=== PATIENT | male | born 1965 | race Caucasian/White ===

== ENCOUNTER 2016-09-24 17:21 | Inpatient (IN) | payer BC ==
[~2016-09-24] VITALS: Ht 180.3 cm; Wt 159.2 kg
[~2016-09-24 17:21] MED LIST: ACET325T9 PO; ALPR1TAB2 PO; AMLO1TAB15 PO; ASPI-630 PO; ATOR40TA59 PO; BYSTOLIC5 MG PO; LEVO50TA5 PO; PRAS10TA9 PO
[2016-09-24 19:55] VITALS: BP 150/77
[2016-09-24] MEDS ORDERED: MULT1TAB97 PO (20:20)
[2016-09-24] MEDS ORDERED: OMEG1CAP6 PO (20:26)
[2016-09-24] MEDS ORDERED: VALS320T2 PO (20:26)
[2016-09-24] MEDS ORDERED: HYDR-2762 PO (20:26)
[2016-09-24] MEDS ORDERED: ACETAMINOPHEN 325 MG TABLET. PO PRN (20:30)
[2016-09-24] MEDS ORDERED: MIRA25TA PO (20:33)
[2016-09-24] MEDS ORDERED: AMLO10TA2 PO (20:52)
[2016-09-24] MEDS ORDERED: GADOBUTROL 7.5 MMOL/7.5 ML VIAL IV ONE ×2 (22:00)
--- NOTE | 2016-09-24 22:30 | RAD ---
EXAM: Brain MRI without and with contrast. HISTORY: Slurred speech. TECHNIQUE: Multiplanar, multisequence magnetic resonance imaging of the brain was performed prior to and following the administration of 14 cc Gadavist intravenous contrast. COMPARISON: Head CT obtained on the same date. FINDINGS: There is no restricted diffusion to suggest acute or subacute infarction. There is a tiny focus of susceptibility artifact within the left thalamus, artifactual or due to chronic microhemorrhage. There are a few tiny scattered foci of T2/FLAIR hyperintensity within the cerebral white matter, a nonspecific finding. The orbits, paranasal sinuses and mastoid air cells are unremarkable. There are normal flow voids within the cerebral vessels. No suspicious enhancing lesion is seen. IMPRESSION: 1. No acute intracranial finding. 2. Tiny foci of signal changes within the cerebral white, likely artifactual or due to chronic small vessel disease or chronic migraine headaches. Electronically signed by: Frida Richardson MD (09/24/2016 10:26 PM)
[2016-09-24] MEDS: METOPROLOL TART IMMED RELEASE 50 MG TABLET. PO SCH (23:02)
[2016-09-24] MEDS: HYDROcodone/APAP 7.5/325MG 1 TAB TABLET PO PRN (23:02)
[2016-09-25 03:23] VITALS: BP 119/65
[2016-09-25 03:55] LABS: BASO # 0.1 x10^3/uL (0.0-0.2); BASO % 1 % (0-3); EOS % 4 % (0-3); HEMOGLOBIN 13.8 g/dL (13.0-17.5); LYMPH # 2.4 x10^3/uL (1.0-4.8); LYMPH % 37 % (24-48); MEAN CORPUSCULAR HEMOGLOBIN 29 pg (25-35); MEAN CORPUSCULAR HGB CONC 36 g/dL (31-37); MEAN CORPUSCULAR VOLUME 83 fL (79-100); MONO % 7 % (0-9); NEUT % 51 % (31-73); PLATELET COUNT 220 x10^3/uL (140-400); RED BLOOD COUNT 4.72 x10^6/uL (4.30-5.70); RED CELL DISTRIBUTION WIDTH 13.2 % (11.5-14.5); WHITE BLOOD COUNT 6.3 x10^3/uL (4.0-11.0)
[2016-09-25 05:18] LABS: CHOLESTEROL/HDL RATIO 6.1
[2016-09-25 06:55] VITALS: BP 129/63
[2016-09-25] MEDS: LEVOTHYROXINE 50 MCG TABLET PO SCH (07:58)
[2016-09-25] MEDS: OMEGA-3 FATTY ACIDS/FISH OIL 1,000 MG CAPSULE. PO SCH (07:58)
[2016-09-25] MEDS: amLODIPine BESYLATE 10 MG TABLET PO SCH (07:59)
[2016-09-25] MEDS: LOSARTAN POTASSIUM 50 MG TABLET. PO SCH (08:00)
[2016-09-25] MEDS: MULTIVITAMIN with MINERAL TABLET. PO SCH (08:01)
[2016-09-25] MEDS: METOPROLOL TART IMMED RELEASE 50 MG TABLET. PO SCH ×2 (08:01→20:49)
--- NOTE | 2016-09-25 08:18 | RAD ---
Carotid ultrasound, 09/25/2016: History: Slurred speech, fall, headache Duplex evaluation of the carotid arteries in neck was performed including grayscale, color-flow and spectral Doppler analysis. There is mild intimal thickening and smooth plaquing at both bifurcations. The Doppler data obtained from the bifurcations reveals no significant focal velocity acceleration to suggest a hemodynamically significant carotid stenosis. The peak systolic velocity in the right internal carotid artery is 75 cm/s with an end-diastolic velocity of 26 cm/s. The peak systolic velocity in the left internal carotid artery is 54 cm/s with an end-diastolic velocity of 19 cm/s. Antegrade flow is present in the left vertebral artery in the neck. The right vertebral artery could not be visualized. IMPRESSION: 1. Minimal smooth plaquing at the carotid bifurcations without duplex evidence of significant stenosis. 2. 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 Note: Stenosis calculations for CT, MRA and conventional angiography are based upon determination of the distal ICA diameter in accordance with the NASCET methodology. Stenosis calculations for Doppler studies are derived from validated velocity criteria which are known to correlate with NASCET methodology of determining stenosis.
[2016-09-25] MEDS ORDERED: MIRABEGRON 25 MG TAB.ER.24H PO SCH (09:00)
[2016-09-25] MEDS ORDERED: ASPIRIN CHEWABLE 81 MG TABLET. PO SCH (09:00)
[2016-09-25] MEDS ORDERED: amLODIPine BESYLATE 10 MG TABLET PO SCH (09:00)
[2016-09-25] MEDS: HYDROcodone/APAP 7.5/325MG 1 TAB TABLET PO PRN ×2 (10:07→17:08)
--- NOTE | 2016-09-25 10:43 | CARD ---
APPROVED REPORT EXAM: Two-dimensional and M-mode echocardiogram with Doppler and color Doppler. Other Information Quality : GoodHR: 66bpm Rhythm : NSR INDICATION Chest Pain Slurred speech hx. Echo Enhancing Agent Indication: Rule Out Septal Defect Agent/Amount Used: Agitated Saline 8mL RISK FACTORS Hypertension Obesity 2D DIMENSIONS RVDd3.3 (2.9-3.5cm)Left Atrium(2D)4.5 (1.6-4.0cm) IVSd0.9 (0.7-1.1cm)Aortic Root(2D)3.2 (2.0-3.7cm) LVDd4.4 (3.9-5.9cm)LVOT Diameter2.5 (1.8-2.4cm) PWd0.8 (0.7-1.1cm)LVDs3.2 (2.5-4.0cm) FS (%) 29.2 %SV50.6 ml LVEF(%)56.2 (>50%) Aortic Valve AoV Peak [place].140.0cm/sAoV VTI31.4cm AO Peak GR.7.8mmHgLVOT Peak [place].96.5cm/s AO Mean GR.5mmHgAVA (VMAX)3.30cm2 Mitral Valve MV E Inejnokn60.0cm/sMV E Peak Gr.6mmHg MV DECEL [id number] A Hkaqwduw43.8cm/s MV E Mean Gr.2mmHgE/A Ratio1.2 MV A Xfcwvxwa40ox Pulmonary Valve PV Peak Zkrrzebb918.3cm/s Tricuspid Valve TR P. Oeraqycx210be/sTR Peak Gr.27mmHg Pulmonary Vein S1 Yvjgfpjk06.0cm/sD2 Oiinlwjw35.8cm/s PVa [id number] LEFT VENTRICLE The left ventricle is normal size. There is normal left ventricular wall thickness. The left ventricu lar systolic function is normal. The Ejection Fraction is 60-65%. There is normal LV segmental wall m otion. Transmitral Doppler flow pattern is Grade I-abnormal relaxation pattern. No left ventricle thr ombus noted on this study. There is no ventricular septal defect visualized. RIGHT VENTRICLE The right ventricle is normal size. There is normal right ventricular wall thickness. The right ventr icular systolic function is normal. ATRIA The left atrium is mildly dilated. The right atrium size is normal. The interatrial septum is intact with no evidence for an atrial septal defect or patent foramen ovale as noted on 2-D or Doppler imagi ng. Injection of bubbles documented no interatrial shunt. AORTIC VALVE The aortic valve is mildly thickened. The aortic valve is trileaflet. Doppler and Color Flow revealed no significant aortic regurgitation. There is no significant aortic valvular stenosis. MITRAL VALVE The mitral valve leaflets are mildly thickened. There is no evidence of mitral valve prolapse. There is no mitral valve stenosis. Doppler and Color Flow revealed mild mitral regurgitation. TRICUSPID VALVE Doppler and Color Flow revealed trace tricuspid regurgitation. The pulmonary artery systolic pressure is estimated at 29 mmHg. There is no pulmonary hypertension. PULMONIC VALVE Doppler and Color Flow revealed mild pulmonic valvular regurgitation. There is no pulmonic valvular s tenosis. GREAT VESSELS The aortic root is normal in size. The ascending aorta is normal in size. The pulmonary artery is nor mal. The IVC was obscured, unable to assess. PERICARDIAL EFFUSION There is no evidence of significant pericardial effusion. Critical Notification Critical Value: No <Conclusion> The left ventricular systolic function is normal. The Ejection Fraction is 60-65%. There is normal LV segmental wall motion. Transmitral Doppler flow pattern is Grade I-abnormal relaxation pattern. Mild mitral regurgitation. Trace tricuspid regurgitation. The pulmonary artery systolic pressure is estimated at 29 mmHg. There is no evidence of significant pericardial effusion. Injection of bubbles documented no interatrial shunt.
[2016-09-25 10:47] VITALS: BP 138/65
--- NOTE | 2016-09-25 11:48 | HP ---
ADMIT DATE: 09/24/2016 CHIEF COMPLAINT: Mental status change and weakness. HISTORY OF PRESENT ILLNESS: The patient is a pleasant middle-aged 51-year-old male presented with mental status change and weakness. He appeared he may have a TIA. He was transferred here; we have now admitted the patient and did an echo this morning, it looks pretty good ____ in the official report, we were also consulted Neurology. He had an MRI; the results are pending. PAST MEDICAL HISTORY: Hypertension, chronic pain, and hypothyroidism. ALLERGIES: None. FAMILY HISTORY: Diabetes. SOCIAL HISTORY: Does not drink, smoke or take drugs. MEDICATIONS: Reviewed, please refer to the MRAD. REVIEW OF SYSTEMS: GENERAL: No history of weight change, weakness or fevers. SKIN: No bruising, hair changes or rashes. EYES: No blurred, double or loss of vision. NOSE AND THROAT: No history of nosebleeds, hoarseness or sore throat. HEART: No history of palpitations, chest pain or shortness of breath on exertion. LUNGS: Denies cough, hemoptysis, wheezing or shortness of breath. GASTROINTESTINAL: Denies changes in appetite, nausea, vomiting, diarrhea or constipation. GENITOURINARY: No history of frequency, urgency, hesitancy or nocturia. NEUROLOGIC: He complains of weakness and slow cognition. PSYCHIATRIC: No history of panic, anxiety or depression. ENDOCRINE: No history of heat or cold intolerance, polyuria or polydipsia. EXTREMITIES: Denies muscle weakness, joint pain, pain on walking or stiffness. PHYSICAL EXAMINATION: VITAL SIGNS: Temperature afebrile, pulse 96, respirations 20, blood pressure 130/56. GENERAL: He is alert, but he is weak. His daughter is present. HEART: Normal S1, S2. LUNGS: Clear. ABDOMEN: Soft and obese. EXTREMITIES: 1+ edema. SKIN: No rashes. PSYCHIATRIC: He is little flat but stable. ENDOCRINE: No thyromegaly. LYMPHATICS: No cervical nodes. HEMATOPOIETIC: No bruising. LABORATORY DATA: White count 6, hemoglobin 13, and platelets 220. Electrolytes are pending. Triglycerides were high at 399. Cholesterol 219. LDL 103. ASSESSMENT AND PLAN: TIA symptoms. The patient is being admitted. We will consult Neurology. We will await MRI report and hold one of his home medications and particularly Myrbetriq as he just started this for some type of bladder dysfunction and his states she wanders if that might be causing the mental status changes. The mental status change came on shortly after that; PT, OT and speech therapy. Continue his other home medicines. Repeat his labs. KATIE TAMAYO DO DR: SONJA/gerardo JOB#: [id number] / [id number]
[2016-09-25 14:56] VITALS: BP 130/71
--- NOTE | 2016-09-25 17:06 | PDOC2 ---
NEUROLOGY CONSULT Date of Admission Date of Admission DATE: 09/25/16 TIME: 16:51 Reason for Consult Reason for Consult: IMPRESSION: TIA HTn HLD Right vertebral A hypoplastic or occlusion. Right cheek mass, per Hx. Obesity. No evidence of acute CVA this time. RECOMMENDATIONS/PLAN: ASA 325 mg daily. Lipitor 40 mg HS. Weight reduction. Diet. Exercise. Discussed with his daughter at bedside. FU with PCP. FU with Neurology in 1 month. Carotid A US + Doppler on 09/25/16: No gihg grade stenosis. Echo on 09/25/16: unremarkable. Lipids on 09/25/16: high. MRI on 09/24/16 : No acute CVA. HISTORY OF THE PRESENT ILLNESS: 51-y-old male patient with Hx of HTN developed symptoms of slurred speech, word finding difficulties and confusion on 09/24. No motor or sensory deficits. His symptoms lasted for several hours then resolved. PAST MEDICAL HISTORY: Please see above. PAST SURGERY HISTORY: No major surgery recently. ALLERGY: Reviewed. MEDICATIONS: Refer to [facility] FAMILY HISTORY: DM. SOCIAL HISTORY: Lives at home. Denies current smoking, drinking, and illicit drug use. REVIEW OF SYSTEMS: Constitutional: No malnutrition, weight loss, cachexia. Head: No traumatic brain or head injury. Skin: No edema, or rash. Ear: No infection. Eyes: No vision loss or color blindness. Nose: No bleeding or purulent discharges. Hearing: No hearing decrease. Neck: No injury. Cardiac: HTN. Pulmonary: No COPD. GI: No GI ulcer, GI bleeding. Urinary/genital: No dysuria, incontinence, urinary retention. Endocrinologic: Diabetes Mellitus. Skeletomuscular: No muscular atrophy, deformity. Neurological: see HP. Psychiatric: Denies drug use/abuse. Otherwise, not [id number] review of systems. PHYSICAL EXAMINATION: General appearance is in subacute distress. HEENT: Normocephalic and nontraumatic. Eyes, nose, ears, and throat are unremarkable. Neck is supple. No lymphadenopathy. No bruits are heard over the carotid artery. No crepitus. Cardiovascular: S1, S2, regular rate and rhythm. Pulmonary: Clear to auscultation bilaterally. Abdomen: Bowel sounds are positive. Abdomen is soft, nontender, and nondistended. Extremities: No rash, lesions, or edema. No restriction of range of motion NEUROLOGICAL EXAMINATION: Alert Oriented to time, place and person. PERRL. EOMI. CN: no focal findings. Muscle tone: within normal. Muscle strength: 5 DTR: 2 Plantar reflex: Flexor response bilaterally Gait: not examined in bed. Sensory exam: no abnormal findings. No cerebellar signs elicited. F-T-N test accurate. Current Medications Current Medications Current Medications Acetaminophen (Tylenol) 325 mg PRN TID PRN PO MILD PAIN / TEMP; Start 09/24/16 at 20:30 Acetaminophen/ Hydrocodone Bitart (Lortab 7.5/325) 1 tab PRN Q6HRS PRN PO PAIN Last administered on 09/25/16 10:07; Start 09/24/16 at 20:30 Levothyroxine Sodium (Synthroid) 50 mcg DAILY07 PO Last administered on 07:58; Start 09/25/16 at 09:00 Fish Oil (Fish Oil) 1,000 mg DAILY PO Last administered on 09/25/16 07:58; Start 09/25/16 at 09:00 Multivitamins (Thera M Plus) 1 tab DAILY PO Last administered on 09/25/16 08: 01; Start 09/25/16 at 09:00 Losartan Potassium (Cozaar) 100 mg DAILY PO Last administered on 09/25/16 08: 00; Start 09/25/16 at 09:00 Amlodipine Besylate (Norvasc) 10 mg DAILY PO Last administered on 09/25/16 07: 59; Start 09/25/16 at 09:00 Mirabegron (Myrbetriq) 25 mg DAILY PO Last administered on 09/25/16 08:04; Start 09/25/16 at 09:00; Stop 09/25/16 at 12:27; Status DC Metoprolol Tartrate (Lopressor) 50 mg BID PO Last administered on 09/25/16 08: 01; Start 09/24/16 at 21:00 Amlodipine Besylate (Norvasc) 10 mg DAILY PO ; Start 09/25/16 at 09:00; Stop at 09:00; Status DC Aspirin (Children'S Aspirin) 81 mg DAILY PO Last administered on 09/25/16 08: 01; Start 09/25/16 at 09:00; Stop 09/25/16 at 16:51; Status DC Gadobutrol (Gadavist) 7 mmol 1X ONCE IV Last administered on 09/24/16t 22:07; Start 09/24/16 at 22:00; Stop 09/24/16 at 22:01; Status DC Gadobutrol (Gadavist) 7 mmol 1X ONCE IV Last administered on 09/24/16t 22:08; Start 09/24/16 at 22:00; Stop 09/24/16 at 22:01; Status DC Aspirin (Children'S Aspirin) 325 mg DAILY PO ; Start 09/26/16 at 09:00; Status UNV Atorvastatin Calcium (Lipitor) 40 mg QHS PO ; Start 09/25/16 at 21:00; Status UNV Active Scripts Active Reported Amlodipine Besylate 10 Mg Tablet 10 Mg PO DAILY Myrbetriq (Mirabegron) 25 Mg Tab.er.24h 25 Mg PO DAILY Fish Oil 1,000 Mg Capsule ([place]-3 Fatty Acids/Fish Oil) 1 Each Capsule 1 Each PO DAILY Diovan (Valsartan) 320 Mg Tablet 320 Mg PO DAILY Hydrocodone-Apap 7.5-325 (Hydrocodone Bit/Acetaminophen) 1 Each Tablet 1 Tab PO PRN Q6HRS PRN Daily Multiple Vitamin (Multivitamin) 1 Each Tablet 1 Each PO DAILYWBKFT Tylenol (Acetaminophen) 325 Mg Tablet 325 Mg PO PRN TID Bystolic (Nebivolol) 5 Mg Tablet 10 Mg PO HS Levothyroxine Sodium 50 Mcg Tablet 50 Mcg PO DAILY Aspirin 81 Mg Tab.chew 81 Mg PO DAILY Allergies Allergies: Coded Allergies: No Known Drug Allergies (Unverified , 06/08/13) Vitals VITALS Vital Signs Date Time Temp Pulse Resp B/P (MAP) Pulse Ox O2 Delivery O2 Flow Rate FiO2 09/25/16 14:56 97.7 67 20 130/71 (90) 96 Room Air 97.7 Labs Labs Laboratory Tests Test 09/25/16 02:55 White Blood Count 6.3 x10^3/uL (4.0-11.0) Red Blood Count 4.72 x10^6/uL (4.30-5.70) Hemoglobin 13.8 g/dL (13.0-17.5) Hematocrit 39.0 % (39.0-53.0) Mean Corpuscular Volume 83 fL (79-100) Mean Corpuscular Hemoglobin 29 pg (25-35) Mean Corpuscular Hemoglobin Concent 36 g/dL (31-37) Red Cell Distribution Width 13.2 % (11.5-14.5) Platelet Count 220 x10^3/uL (140-400) Neutrophils (%) (Auto) 51 % (31-73) Lymphocytes (%) (Auto) 37 % (24-48) Monocytes (%) (Auto) 7 % (0-9) Eosinophils (%) (Auto) 4 % (0-3) Basophils (%) (Auto) 1 % (0-3) Neutrophils # (Auto) 3.2 x10^3uL (1.8-7.7) Lymphocytes # (Auto) 2.4 x10^3/uL (1.0-4.8) Monocytes # (Auto) 0.4 x10^3/uL (0.0-1.1) Eosinophils # (Auto) 0.3 x10^3/uL (0.0-0.7) Basophils # (Auto) 0.1 x10^3/uL (0.0-0.2) RP-Mog-J-Type Natriuretic Peptide 16 pg/mL (0-124) Triglycerides Level 399 mg/dL (0-150) Cholesterol Level 219 mg/dL (0-200) LDL Cholesterol, Calculated 103 mg/dL (0-100) VLDL Cholesterol, Calculated 80 mg/dL (0-40) Non-HDL Cholesterol Calculated 183 mg/dL (0-129) HDL Cholesterol 36 mg/dL (40-60) Cholesterol/HDL Ratio 6.1 Laboratory Tests Test 09/25/16 02:55 White Blood Count 6.3 x10^3/uL (4.0-11.0) Red Blood Count 4.72 x10^6/uL (4.30-5.70) Hemoglobin 13.8 g/dL (13.0-17.5) Hematocrit 39.0 % (39.0-53.0) Mean Corpuscular Volume 83 fL (79-100) Mean Corpuscular Hemoglobin 29 pg (25-35) Mean Corpuscular Hemoglobin Concent 36 g/dL (31-37) Red Cell Distribution Width 13.2 % (11.5-14.5) Platelet Count 220 x10^3/uL (140-400) Neutrophils (%) (Auto) 51 % (31-73) Lymphocytes (%) (Auto) 37 % (24-48) Monocytes (%) (Auto) 7 % (0-9) Eosinophils (%) (Auto) 4 % (0-3) Basophils (%) (Auto) 1 % (0-3) Neutrophils # (Auto) 3.2 x10^3uL (1.8-7.7) Lymphocytes # (Auto) 2.4 x10^3/uL (1.0-4.8) Monocytes # (Auto) 0.4 x10^3/uL (0.0-1.1) Eosinophils # (Auto) 0.3 x10^3/uL (0.0-0.7) Basophils # (Auto) 0.1 x10^3/uL (0.0-0.2) JZ-Qbq-U-Type Natriuretic Peptide 16 pg/mL (0-124) Triglycerides Level 399 mg/dL (0-150) Cholesterol Level 219 mg/dL (0-200) LDL Cholesterol, Calculated 103 mg/dL (0-100) VLDL Cholesterol, Calculated 80 mg/dL (0-40) Non-HDL Cholesterol Calculated 183 mg/dL (0-129) HDL Cholesterol 36 mg/dL (40-60) Cholesterol/HDL Ratio 6.1 VALENTE NEGRETE MD Sep 25, 2016 17:06
[2016-09-25 19:05] VITALS: BP 133/74
[2016-09-25] MEDS ORDERED: ATORVASTATIN CALCIUM 40 MG TABLET. PO SCH (21:00)
[2016-09-25 23:05] VITALS: BP 126/69
--- NOTE | 2016-09-25 23:30 | ACF ---
Admission Forms Criteria TELEMETRY CARE Telemetry Admission Guidelines (Place 'X' for any and all applicable criteria): Admission to telemetry [A] may be indicated for ANY ONE of the following(1)(2)(3 )(4)(5): [ ]I. Cardiac disease, including ANY ONE of the following (9)(10)(11)(12)(13 ): [ ]a) Postacute NM [ ]b) Low-risk patients with ST-segment elevation NM who have undergone successful percutaneous coronary intervention [ ]c) Unstable angina [ ]d) Suspected NM (until it is ruled out) [ ]e) Post cardiac surgery (first 48 to 72 hours unless complications occur) [ ]f) Acute arrhythmias (including significant tachycardia or bradycardia) [B] [ ]g) Firing of an implantable cardioverter defibrillator [C] [ ]h) Suspected pacemaker or implantable cardioverter defibrillator malfunction (10) [ ]i) New administration or adjustment of an antiarrhythmic drug [D ] [ ]j) Child admitted for acute congestive heart failure [ ]j) Long QT syndrome [ ]k) Advanced heart block (eg, second-degree Mobitz type II, third- degree heart block) [ ]l) Acute myocarditis or pericarditis [ ]m) Short-term (ambulatory or inpatient) monitoring after a cardiac procedure as indicated by ANY ONE of the following [E]: [ ]i) Electrophysiologic studies [ ]ii) Percutaneous coronary intervention with stent placement [ ]iii) Pacemaker placement with cardiac conduction defect [ ]iv) Implantable cardiac defibrillator placement [ ]II. Drug overdose or poisoning with substance that causes arrhythmias or QT prolongation (eg, phenothiazines, sympathomimetic agents, cyclic antidepressants, digitalis, antiarrhythmic drugs)(15) [ ]III. Short-term (ambulatory or inpatient) monitoring after therapeutic or diagnostic procedure requiring conscious sedation or anesthesia (eg, endoscopy, elective cardioversion) [X]IV. Acute cerebrovascular even[F](18) [ ]V. Massive blood transfusion (eg, at least 10 units of packed red blood cells in 24 hours) [ ]. Variceal bleeding after endoscopy, sclerotherapy, or IV vasopressin [ ]VII. Uncorrected electrolyte abnormalities associated with an increased risk of dangerous arrhythmia [G]; examples include [ ]a) Hyperkalemia with attributable ECG changes [ ]b) Potassium greater than 6.5 mmol/L (mEq/L) in a patient without history of chronic renal disease [ ]c) Prolonged QT attributed to hypokalemia, hypomagnesemia, or hypocalcemia [ ]VIII.Unexplained syncope or other neurologic event suspected of being due to arrhythmia due to a finding that increases risk; examples include(19)(20)(21): [ ]a) High-risk ECG findings (eg, bifascicular block, bradycardia, abnormal QT interval, ventricular pre- excitation) [ ]b) History of previous syncope due to arrhythmia [ ]c) Abnormal ventricular function (eg, reduced ejection fraction ) [ ]d) Exertional or supine syncope [ ]e) Concerning syncope characteristics (eg, sudden loss of consciousness without prodrome) [ ]f) Family history of sudden [ ]g) Use of arrhythmogenic medication [ ]h) Suspected cardiac ischemia [ ]i) Known channelopathy (eg, long QT syndrome, Brugada syndrome, or catecholaminergic paroxysmal ventricular tachycardia) [ ]j) Known structural heart disease (eg, hypertrophic cardiomyopathy , severe valvular disease) [ ]k) Palpitations preceding syncope The original [employer] content created by [employer] has been revised. The portions of the content which have been revised are identified through the use of italic text or in bold, and [facility] has neither reviewed nor approved the modified material. All other unmodified content is copyright [employer]. Please see references footnoted in the original [employer] edition 2016 Admission Criteria Met?: Yes MONO BAIRES Sep 25, 2016 23:30
[2016-09-26] MEDS: HYDROcodone/APAP 7.5/325MG 1 TAB TABLET PO PRN (02:55)
[2016-09-26 03:05] VITALS: BP 144/76
[2016-09-26] MEDS: LEVOTHYROXINE 50 MCG TABLET PO SCH (06:03)
[2016-09-26 07:41] VITALS: BP 138/80
[2016-09-26] MEDS: MULTIVITAMIN with MINERAL TABLET. PO SCH (07:49)
[2016-09-26] MEDS: LOSARTAN POTASSIUM 50 MG TABLET. PO SCH (07:49)
[2016-09-26] MEDS: METOPROLOL TART IMMED RELEASE 50 MG TABLET. PO SCH (07:50)
[2016-09-26] MEDS: OMEGA-3 FATTY ACIDS/FISH OIL 1,000 MG CAPSULE. PO SCH (07:50)
[2016-09-26 07:51] VITALS: BP 138/80
[2016-09-26] MEDS: amLODIPine BESYLATE 10 MG TABLET PO SCH (07:51)
[2016-09-26] MEDS ORDERED: ASPIRIN ENTERIC COATED 325 MG TABLET.DR. PO SCH (08:00)
[2016-09-26] MEDS ORDERED: ASPI325T8 PO (09:38)
[2016-09-26] MEDS ORDERED: ATOR40TA PO (09:39)
--- NOTE | 2016-09-26 17:09 | DS ---
DATE OF DISCHARGE: 09/26/2016 ADMISSION DIAGNOSIS: Transient ischemic attack versus possible drug reaction. DISCHARGE DIAGNOSIS: Resolving transient ischemic attack versus drug reaction. CONSULTS: Dr. Sanderson. PROCEDURES: None. HOSPITAL COURSE: The patient is a pleasant middle-aged white male who presented with mental status change, slurred speech, and some weakness. It appeared that he might have a TIA. Interestingly, he had been started on a new medication for his bladder issues (Myrbetriq). We went ahead and did an MRI. It was basically normal. We put him on more aspirin. We did some physical therapy and occupational therapy and held that suspicious medication. Over the past couple of days, he seems to be returning to his baseline. We are not sure it was the medication or the TIA, but he is doing well. I did examine the patient this morning. He is alert and oriented. He is moving all extremities. His heart sounds were normal. We plan to discharge. DISPOSITION: Home. ACTIVITY: As tolerated. DIET: Low sodium. MEDICATIONS: Please see the MRAD. TOTAL TIME: 32 minutes. KATIE TAMAYO DO DR: SONJA/gerardo JOB#: [id number] / [id number]
== END 2016-09-26 09:50 | disposition home or self-care (01) | DRG 69 ==
LOC: 6 SOUTH 19:37
PROVIDERS: ADMIT Internal Medicine; ATTEND Internal Medicine
DX: G45.9 Transient cerebral ischemic attack, unspecified (principal); Z68.42 Body mass index [BMI] 45.0-49.9, adult; E03.9 Hypothyroidism, unspecified; E66.9 Obesity, unspecified; G89.29 Other chronic pain; E78.5 Hyperlipidemia, unspecified; I10 Essential (primary) hypertension; Z83.3 Family history of diabetes mellitus; Q76.49 Other congenital malformations of spine, not associated with scoliosis; T50.905A Adverse effect of unspecified drugs, medicaments and biological substances, initial encounter; Y92.89 Other specified places as the place of occurrence of the external cause
CPT/HCPCS: 36415; 70553; 80061; 83880; 85027; 93880; C8929; A9585

== ENCOUNTER → 2017-12-25 | Outpatient (CLI) | payer BC ==
[~2017-12-25] MED LIST changes: +AMLO10TA6 PO; +ASPI325T8 PO; +ATOR40TA PO; +HYDR-2762 PO; +MIRA25TA PO; +MULT1TAB97 PO; +OMEG1CAP6 PO; +VALS320T2 PO
--- NOTE | 2017-12-25 11:40 | RAD ---
EXAM: MRI RIGHT KNEE DATE: 12/25/2017 8:15 AM CLINICAL INDICATION: WORSENING RIGHT MEDIAL KNEE PAIN OVER LAST MONTH, NO SX HX, NO PRIORS COMPARISON: None. TECHNIQUE: Multiplanar multisequence MR imaging of the right knee was performed without IV contrast. FINDINGS: No significant knee joint effusion. Complex multiloculated large Cohen's cyst is seen with diffuse edema tracking inferiorly along the medial knee likely from recent partial rupture. The ACL and PCL are intact. Mildly increased signal about the MCL possibly reactive from adjacent meniscal tear described below or from low-grade sprain. The fibular collateral ligament, biceps femoris, IT band and popliteus tendon are intact, normal in signal and morphology. Extensor mechanism is intact. Neutral patellar tracking. Medial meniscus: There is an oblique tear with radial component involving the posterior horn and body of the medial meniscus. Lateral meniscus: There is longitudinal increased signal within the anterior horn of the lateral meniscus consistent with longitudinal tear. Full-thickness cartilage defect is seen at the posterior weightbearing surface of the medial femoral condyle. Chondral thinning is seen at the medial patellar facet. IMPRESSION: 1. Multiloculated Cohen's cyst is seen with edema tracking inferiorly along the medial leg likely from recent partial rupture. 2. Complex tear of the medial meniscus with oblique and radial components involving the posterior horn and body. 3. Longitudinal tear of the anterior horn of the lateral meniscus. 4. Medial and patellofemoral compartment chondromalacia. Electronically signed by: Hieu Mcmanus MD (12/25/2017 11:36 AM) [id number]
== END | disposition home or self-care (01) ==
LOC: MRI 07:54
PROVIDERS: ATTEND Physician Assistant Medical
DX: S83.241A Other tear of medial meniscus, current injury, right knee, initial encounter (principal); S83.281A Other tear of lateral meniscus, current injury, right knee, initial encounter; M71.21 Synovial cyst of popliteal space [Baker], right knee; M22.41 Chondromalacia patellae, right knee; I10 Essential (primary) hypertension; E78.5 Hyperlipidemia, unspecified; E03.9 Hypothyroidism, unspecified; Z83.3 Family history of diabetes mellitus; X58.XXXA Exposure to other specified factors, initial encounter; Y93.89 Activity, other specified; Y92.89 Other specified places as the place of occurrence of the external cause; Y99.8 Other external cause status
CPT/HCPCS: 73721

== ENCOUNTER 2018-07-06 06:36 | Day surgery (SDC) | payer BC ==
[~2018-07-06] VITALS: Ht 180.3 cm; Wt 158.8 kg
[~2018-07-06 06:36] MED LIST changes: -AMLO10TA6 PO; +AMLO10TA8 PO; -HYDR-2762 PO; +HYDR-2765 PO; +VENL75CA PO; +ceFAZolin SODIUM 3 GM in IV DEXTROSE 5% 100ML 100 ML IV PRN
[2018-07-06] MEDS ORDERED: LIDOCAINE 1% PF 2 ML VIAL. ID PRN (07:00)
[2018-07-06] MEDS ORDERED: IV RINGERS,LACTATED 1000ML 1,000 ML IV SCH (07:00)
[2018-07-06] MEDS ORDERED: HYDROmorphone 2 MG/ML VIAL IV PRN (07:00)
[2018-07-06] MEDS ORDERED: MORPHINE SULFATE 2 MG/ML VIAL. IV PRN (07:00)
[2018-07-06] MEDS ORDERED: fentaNYL PF VIAL 100 MCG/2 ML VIAL IV PRN (07:00)
[2018-07-06] MEDS ORDERED: ONDANSETRON PF 4 MG/2 ML VIAL. IV PRN (07:00)
[2018-07-06] MEDS ORDERED: PROCHLORPERAZINE 10 MG/2 ML VIAL. IV PRN (07:00)
[2018-07-06] MEDS ORDERED: EPINEPHrine VIAL 30 MG/30 ML VIAL ONE (07:15)
[2018-07-06] MEDS ORDERED: BUPIVACAINE 0.25% 50 ML VIAL. ONE (07:15)
[2018-07-06] MEDS ORDERED: PROPOFOL 20 ML IV ONE (08:36)
[2018-07-06] MEDS ORDERED: LIDOCAINE 2% PF 5 ML VIAL. ONE (08:36)
[2018-07-06] MEDS ORDERED: ONDANSETRON PF 4 MG/2 ML VIAL. ONE (08:36)
[2018-07-06] MEDS ORDERED: DEXAMETHASONE SOD PHOS 20 MG/5 ML VIAL. ONE (08:36)
[2018-07-06] MEDS ORDERED: MIDAZOLAM HCL/PF 2 MG/2 ML VIAL. ONE (08:36)
[2018-07-06] MEDS ORDERED: fentaNYL PF VIAL 100 MCG/2 ML VIAL ONE ×3 (08:37→11:55)
[2018-07-06] MEDS ORDERED: BUPIVACAINE-EPI 0.25%-1:200000 MPF 30 ML VIAL. ONE ×2 (09:13→10:37)
--- NOTE | 2018-07-06 09:51 | PDOC1 ---
History and Physical Date of Admission Date of Admission DATE: 07/06/18 TIME: 09:45 Identification/Chief Complaint Chief Complaint right knee pain Source Source: Chart review, Patient History of Present Illness History of Present Illness 52-year-old man with right knee pain since December 2017. Stepped off a stair at his house in december 2017. Pain getting progressivly worse. MRI at [facility]. He walks 4 miles a day but has severe pain with walking now. The knee problems and swells after walking area some twinges of pain, popping and mechanical symptoms. He tried tramadol and ibuprofen. He has hypertension and sleep apnea for which he uses CPAP. He had a cardiac stent in 2012 and takes an aspirin daily. He works in IT. Past Medical History Cardiovascular: CAD, HTN, Hyperlipidemia Endocrine: Hypothyroidism Past Surgical History Past Surgical History: Appendectomy Family History Family History: Cancer, Coronary Artery Disease Social History ALCOHOL: rare Drugs: None Current Medications Current Medications Current Medications Ondansetron HCl (Zofran) 4 mg PRN Q6HRS PRN IV NAUSEA/VOMITING; Start 07/06/18 at 07:00; Stop 07/07/18 at 06:59 Fentanyl Citrate (Fentanyl 2ml Vial) 25 mcg PRN Q5MIN PRN IV MILD PAIN; Start 07/06/18 at 07:00; Stop 07/07/18 at 06:59 Fentanyl Citrate (Fentanyl 2ml Vial) 50 mcg PRN Q5MIN PRN IV MODERATE TO SEVERE PAIN; Start 07/06/18 at 07:00; Stop 07/07/18 at 06:59 Morphine Sulfate (Morphine Sulfate) 1 mg PRN Q10MIN PRN IV SEVERE PAIN; Start 07/06/18 at 07:00; Stop 07/07/18 at 06:59 Ringer's Solution 1,000 ml @ 30 mls/hr Q24H IV ; Start 07/06/18 at 07:00; Stop 07/06/18 at 18:59 Lidocaine HCl (Xylocaine-Mpf 1% 2ml Vial) 2 ml PRN 1X PRN ID PRIOR TO IV START ; Start 07/06/18 at 07:00; Stop 07/07/18 at 06:59 Hydromorphone HCl (Dilaudid) 0.5 mg PRN Q10MIN PRN IV SEV PAIN, Second choice; Start 07/06/18 at 07:00; Stop 07/07/18 at 06:59 Prochlorperazine Edisylate (Compazine) 5 mg PACU PRN PRN IV NAUSEA, MRX1; Start 07/06/18 at 07:00; Stop 07/07/18 at 06:59 Cefazolin Sodium 3 gm/Dextrose 100 ml @ 200 mls/hr 1X PREOP PRN IV PRIOR TO PROCEDURE; Start 07/06/18 at 06:00; Stop 07/06/18 at 15:00 Epinephrine HCl (Adrenalin) 30 mg STK-MED ONCE .ROUTE ; Start 07/06/18 at 07:15; Stop 07/06/18 at 08:16; Status DC Dexamethasone Sodium Phosphate (Decadron) 20 mg STK-MED ONCE .ROUTE ; Start 07/06 at 08:36; Stop 07/06/18 at 08:37; Status DC Lidocaine HCl (Lidocaine Pf 2% Vial) 5 ml STK-MED ONCE .ROUTE ; Start 07/06/18 at 08:36; Stop 07/06/18 at 08:37; Status DC Ondansetron HCl (Zofran) 4 mg STK-MED ONCE .ROUTE ; Start 07/06/18 at 08:36; Stop 07/06/18 at 08:37; Status DC Propofol 20 ml @ As Directed STK-MED ONCE IV ; Start 07/06/18 at 08:36; Stop 07/06 at 08:37; Status DC Midazolam HCl (Versed) 2 mg STK-MED ONCE .ROUTE ; Start 07/06/18 at 08:36; Stop 07/06/18 at 08:37; Status DC Fentanyl Citrate (Fentanyl 2ml Vial) 100 mcg STK-MED ONCE .ROUTE ; Start at 08:37; Stop 07/06/18 at 08:38; Status DC Active Scripts Active Reported Effexor Xr (Venlafaxine Hcl) 75 Mg Cap.er.24h 1 Cap PO QHS Lipitor (Atorvastatin Calcium) 40 Mg Tablet 1 Tab PO QHS Aspirin 325 Mg Tablet 1 Tab PO DAILY Amlodipine Besylate 10 Mg Tablet 10 Mg PO DAILY Fish Oil 1,000 Mg Capsule (Pamplin-3 Fatty Acids/Fish Oil) 1 Each Capsule 1 Each PO DAILY Diovan (Valsartan) 320 Mg Tablet 320 Mg PO DAILY Hydrocodone-Apap 7.5-325 (Hydrocodone Bit/Acetaminophen) 1 Each Tablet 1 Tab PO PRN Q6HRS PRN Daily Multiple Vitamin (Multivitamin) 1 Each Tablet 1 Each PO DAILYWBKFT Bystolic (Nebivolol) 5 Mg Tablet 10 Mg PO HS Allergies Allergies: Coded Allergies: No Known Drug Allergies (Unverified , 07/06/18) ROS General: No: Chills, Night Sweats Eyes: No Blurry vision, No Double vision HEENT: No: Heacaches Hematological and Lymphatic: No: Blood Clots Respiratory: No: Cough, Shortness of breath Cardiovascular: No Chest Pain, No Palpitations Gastrointestinal: No Nausea, No Vomiting, No Diarrhea Musculoskeletal: Yes Joint Pain Neurological: No Dizziness, No Headaches Physical Exam General: Alert, Cooperative HEENT: Atraumatic Lungs: Normal air movement Heart: RRR Abdomen: Soft Extremities: No clubbing, No cyanosis, No edema, Normal pulses, Other (The RIGHT knee shows normal alignment, no masses. There is no effusion. There is tenderness at the medial joint line. Marbella's test is positive. There is medial joint line pain with deep flexion and especially with rotation of the tibia. The lateral joint line shows no tenderness. Range of motion is 0-135 degrees. There is trace patellofemoral crepitus. The knee is stable to varus and valgus stress without subluxation or laxity. The ACL feels intact on Jean testing. Muscle strength is normal (5/5) for quadriceps and hamstrings, and muscle tone is normal. The skin is normal with no scars, rashes, lesions or ulcers. Light touch sensation is intact. No edema and no varicosities. Dorsalis pedis pulse is intact and capillary refill is normal.) Vitals Vitals Vital Signs Date Time Temp Pulse Resp B/P (MAP) Pulse Ox O2 Delivery O2 Flow Rate FiO2 07/06/18 07:25 98.3 82 18 168/79 98 Room Air 98.3 Images Images : 1965 LOCATION: MRI AGE: 52 SEX: M EXAM STATUS: REG CLI ORD. PHYSICIAN: DALE BARON REASON: PROCEDURE: LOWER EXT JOINT WO RT EXAM: MRI RIGHT KNEE DATE: 12/25/2017 8:15 AM CLINICAL INDICATION: WORSENING RIGHT MEDIAL KNEE PAIN OVER LAST MONTH, NO SX HX, NO PRIORS COMPARISON: None. TECHNIQUE: Multiplanar multisequence MR imaging of the right knee was performed without IV contrast. FINDINGS: No significant knee joint effusion. Complex multiloculated large Cohen's cyst is seen with diffuse edema tracking inferiorly along the medial knee likely from recent partial rupture. The ACL and PCL are intact. Mildly increased signal about the MCL possibly reactive from adjacent meniscal tear described below or from low-grade sprain. The fibular collateral ligament, biceps femoris, IT band and popliteus tendon are intact, normal in signal and morphology. Extensor mechanism is intact. Neutral patellar tracking. Medial meniscus: There is an oblique tear with radial component involving the posterior horn and body of the medial meniscus. Lateral meniscus: There is longitudinal increased signal within the anterior horn of the lateral meniscus consistent with longitudinal tear. Full-thickness cartilage defect is seen at the posterior weightbearing surface of the medial femoral condyle. Chondral thinning is seen at the medial patellar facet. IMPRESSION: 1. Multiloculated Cohen's cyst is seen with edema tracking inferiorly along the medial leg likely from recent partial rupture. 2. Complex tear of the medial meniscus with oblique and radial components involving the posterior horn and body. 3. Longitudinal tear of the anterior horn of the lateral meniscus. 4. Medial and patellofemoral compartment chondromalacia. Electronically signed by: Hieu Blackman MD (12/25/2017 11:36 AM) [id number] DICTATED and SIGNED BY: HIEU BLACKMAN MD DATE: 12/25/17 1130. VTE Prophylaxis Ordered VTE Prophylaxis Devices: Yes VTE Pharmacological Prophylaxi: Yes Assessment/Plan Assessment/Plan We discussed that he has some underlying knee osteoarthritis. Some day he needs a knee replacement. He is only 52 years old, weighs 350 pounds and has a BMI greater than 48. I would recommend avoiding the replacement at this time, and arthroscopic surgery to remove the painful torn menisci. This should help the pain of the torn menisci, and help to resolve the Cohen's cyst. I believe his pain will be improved with arthroscopy and meniscectomy, but often there is an arthritis flare with arthroscopic procedure. He likely will require a cortisone injection in about 6 weeks after the surgery. I'm hopeful he will get 5-10 more years out of this knee before knee replacement and ideally he would lose weight before knee replacement. I explained there is a risk that the arthritis will still be very painful after the arthroscopic procedure. We discussed options for treatment. Meniscus tear is not life-threatening. The natural history after significant meniscus tear includes the development of osteoarthritis in future years. I recommended arthroscopic meniscectomy, which will help relieve some of the acute symptoms, and likely will improve the swelling causing the Cohen cyst. I gave him the option of trying a cortisone injection and doing therapy but it's a fairly significant medial meniscus tear and surgery was my primary recommendation. He agrees with that plan. We discussed potential risks such as bleeding, infection, neurovascular injury, blood clots, progressive arthritis, continued pain, or other potential surgical or anesthetic complications. All of his questions about surgery were answered and he desires to proceed at a mutually convenient date. ARLEN GALAN MD Jul 06, 2018 09:51
[2018-07-06] MEDS ORDERED: SEVOFLURANE 61 TO 120 MINUTES. IH ONE (10:17)
[2018-07-06] MEDS ORDERED: FAMOTIDINE 20 MG/2 ML VIAL ONE (10:17)
[2018-07-06] MEDS ORDERED: BUPIVACAINE-EPI 0.25%-1:200000 MPF 30 ML VIAL. INJ ONE (11:01)
--- NOTE | 2018-07-06 11:27 | PDOC4 ---
Operative Note Operative Note Date of Procedure: July 06, 2018 Preoperative Diagnosis: right knee medial and lateral meniscus tears Postoperative Diagnosis: 1. complex tear medial meniscus, current injury, right knee, initial encounter, S83.231A 2. complex tear of lateral meniscus, current injury, right knee, initial encounter, S83.271A Procedures Performed: right knee arthroscopy, surgical, with meniscectomy , medial AND lateral, including meniscal shaving, including debridement/shaving of articular cartilage (chondroplasty) CPT 83810 Surgeon: Arlen Salgado MD Anesthesia: General Estimated Blood Loss: 5 mL Specimens: none Drains: none Complications: none Tourniquet time: 39 minutes Indications for Procedure: The patient is a 52-year-old with right knee pain, unrelieved with nonoperative treatment. Exam and MRI are consistent with a meniscus tear. We talked about the risks and benefits of proceeding with an arthroscopic procedure. We talked about potential risks of ongoing pain, progressive arthritis, bleeding, infection, blood clots, or other potential surgical or anesthetic complications. All of the patient's questions about surgery were answered and they desired to proceed. Written consent was obtained. Description of Operation: The patient was identified in the preoperative holding area. The correct right knee was marked by me. The patient was taken to the operating room, where a general anesthetic was used. Preoperative antibiotics were given intravenously. A time-out procedure was performed. A tourniquet was placed on the upper thigh. Local anesthetic 20 mLs of 0.25% bupivacaine with epinephrine was injected using sterile technique into the knee joint. The limb was prepared circumferentially with ChloraPrep solution and sterile waterproof arthroscopy drapes were applied. The limb was exsanguinated with an Esmarch bandage and the tourniquet was inflated to 350 mm Hg. Lateral and medial arthroscopy portals were established. An accessory lateral portal was also used. The medial meniscus showed a complex unrepairable tear with unstable flaps. A meniscectomy was performed with basket forceps and the motorized shaver back to a smooth stable base, and the resection tapered into the middle one-third of the meniscus.The medial tibiofemoral joint showed chondromalacia Outerbridge grade II, so a shaving chondroplasty was performed removing loose unstable fragments of articular cartilage.The intercondylar notch was free of loose bodies, and the ACL was intact. The lateral tibiofemoral joint showed anteriorly a complex unrepairable meniscus tear, and a meniscectomy was performed with basket forceps and the motorized shaver back to a smooth stable base.The lateral articular surfaces showed chondromalacia Outerbridge grade II, so a shaving chondroplasty was performed removing loose unstable fragments of articular cartilage. The patellofemoral joint showed chondromalacia Outerbridge grade III, and a shaving chondroplasty was performed removing unstable fragments of cartilage with the shaver. The suprapatellar pouch, medial and lateral gutters were free of loose bodies. Copious irrigation was used to drain all meniscal and chondral fragments, and the knee was drained of fluid. The portals were closed with 3-0 Prolene interrupted sutures. Additional local anesthetic, 30 mLs of 0.25% bupivacaine with ephinephrine was injected. A bulky sterile dressing was applied and the tourniquet was released. Needle and sponge counts were correct and there were no apparent complications. ARLEN SALGADO MD Jul 06, 2018 11:27
[2018-07-06] MEDS: fentaNYL PF VIAL 100 MCG/2 ML VIAL IV PRN ×4 (11:41→12:27)
[2018-07-06] MEDS ORDERED: OXYC5TAB4 PO (11:50)
[2018-07-06] MEDS ORDERED: PROM25TA10 PO (11:50)
[2018-07-06] MEDS ORDERED: oxyCODONE IR 5 MG TABLET PO ONE ×2 (12:00→12:30)
[2018-07-06] MEDS ORDERED: oxyCODONE IR 5 MG TABLET ONE (12:16)
[2018-07-06 13:30] VITALS: BP 166/90
== END 2018-07-06 14:10 | disposition home or self-care (01) ==
LOC: SURG 06:36
PROVIDERS: ATTEND Orthopaedic Surgery
DX: S83.231A Complex tear of medial meniscus, current injury, right knee, initial encounter (principal); S83.271A Complex tear of lateral meniscus, current injury, right knee, initial encounter; M94.261 Chondromalacia, right knee; I10 Essential (primary) hypertension; E78.5 Hyperlipidemia, unspecified; E03.9 Hypothyroidism, unspecified; I25.10 Atherosclerotic heart disease of native coronary artery without angina pectoris; Z90.49 Acquired absence of other specified parts of digestive tract; Z82.49 Family history of ischemic heart disease and other diseases of the circulatory system; Z72.89 Other problems related to lifestyle; Z79.899 Other long term (current) drug therapy; X58.XXXA Exposure to other specified factors, initial encounter; Y93.01 Activity, walking, marching and hiking; Y92.098 Other place in other non-institutional residence as the place of occurrence of the external cause; Y99.8 Other external cause status
CPT/HCPCS: 29880; 97116; 97162; A7015; C1782; J0171; J1100; J2001; J2405; J2704; J3010; J3490; J7120; J2250